=== PATIENT | female | born 1995 | race Caucasian/White ===

== ENCOUNTER 2017-06-28 22:04 | Emergency (ER) | payer OTHER ==
[~2017-06-28] VITALS: Ht 162.5 cm; Wt 77.1 kg
[2017-06-28 22:10] VITALS: BP 160/80
== END 2017-06-29 00:38 | disposition home or self-care (01) ==
LOC: ED 22:04
DX: R51 Headache (principal); Z88.0 Allergy status to penicillin; V49.59XA Passenger injured in collision with other motor vehicles in traffic accident, initial encounter; Y93.89 Activity, other specified; Y92.89 Other specified places as the place of occurrence of the external cause; Y99.9 Unspecified external cause status